=== PATIENT | male | born 1965 | race Two or more races ===

== ENCOUNTER 2022-06-21 19:22 | Emergency (ER) | payer OTHER ==
[~2022-06-21] VITALS: Ht 172.7 cm; Wt 115.2 kg
[2022-06-21] MEDS ORDERED: AMLODIPINE BESYL5 MG (20:43)
[2022-06-21] MEDS ORDERED: VALSARTAN 320 MG (20:44)
[2022-06-21] MEDS ORDERED: VALSARTAN-HCTZ1 EAC4 (20:44)
[2022-06-21] MEDS ORDERED: METHOCARBAMOL (20:45)
[2022-06-22] MEDS ORDERED: KETO10TA2 PO (00:58)
[2022-06-22] MEDS ORDERED: CEPHALEXIN500 MG PO (00:58)
== END 2022-06-22 01:11 ==
LOC: ER 19:22
DX: S61.411A Laceration without foreign body of right hand, initial encounter (principal); W45.8XXA Other foreign body or object entering through skin, initial encounter; Y93.89 Activity, other specified; Y92.9 Unspecified place or not applicable; Y99.9 Unspecified external cause status